=== PATIENT | female | born 1935 | race Caucasian/White ===

== ENCOUNTER 2017-05-05 17:16 | Emergency (ER) | payer MEDICARE, OTHER ==
[2017-05-05 18:51] LABS: BASOPHILS # (AUTO) 0.1 10^3/uL (0.0-0.1); BASOPHILS % (AUTO) 0.9 %; EOSINOPHILS % (AUTO) 0.4 %; HCT - HEMATOCRIT 41.8 % (37.0-47.0); HGB - HEMOGLOBIN 13.8 g/dL (12.0-16.0); LYMPHOCYTES # (AUTO) 1.2 10^3/uL (1.5-3.5); LYMPHOCYTES % (AUTO) 11.3 %; MEAN CORPUSCULAR HEMOGLOBIN 30.5 pg (27.0-31.0); MEAN CORPUSCULAR VOLUME 92.3 fL (81.0-99.0); MEAN PLATELET VOLUME 8.2 fL (7.9-10.8); MONOCYTES # (AUTO) 1.1 10^3/uL (0.0-1.0); MONOCYTES % (AUTO) 10.3 %; NEUTROPHILS # (AUTO) 8.5 10^3/uL (1.5-6.6); NEUTROPHILS % (AUTO) 77.1 %; RED BLOOD COUNT 4.53 10^6/uL (4.20-5.40); RED CELL DISTRIBUTION WIDTH 13.5 % (12.0-15.0); UNCORRECTED WHITE BLOOD COUNT 10.9 x10^3/uL; WHITE BLOOD COUNT 10.9 x10^3/uL (4.8-10.8)
[2017-05-05 19:04] LABS: ALBUMIN/GLOBULIN RATIO 1.2 (1.0-2.2); BILIRUBIN,TOTAL 0.5 mg/dL (0.2-1.0); CALCIUM 9.6 mg/dL (8.5-10.3); CREATININE 0.7 mg/dL (0.4-1.0); POTASSIUM 4.2 mmol/L (3.5-5.0)
--- NOTE | 2017-05-05 20:26 | XRAY Preliminary Report ---
Exam: XR Chest 2 View PA/LAT IMPRESSION: Large left pleural effusion. [facility] SITE ID: [id number]
--- NOTE | 2017-05-05 20:29 | XRAY Report ---
EXAM: CHEST RADIOGRAPHY EXAM DATE: 05/05/2017 07:36 PM. CLINICAL HISTORY: Cough, dyspnea. COMPARISON: None. TECHNIQUE: 2 views. FINDINGS: Lungs/Pleura: Large left pleural effusion. Mediastinum: The visualized portions appear within normal limits for age. IMPRESSION: Large left pleural effusion. [facility] Referring Provider Line: [phone] SITE ID: [id number]
--- NOTE | 2017-05-05 21:19 | ED Physician Documentation ---
PD HPI URI - Stated complaint Stated Complaint: SOA - Chief complaint Chief Complaint: Resp - History obtained from History obtained from: Patient - History of Present Illness Timing - onset: How many weeks ago Timing duration: Weeks Timing details: Gradual onset, Still present Associated symptoms: Nasal congestion, Productive cough (clear sputum), Dyspnea. No: Swollen nodes, Hemoptysis, Chest pain, NVD, Bilateral edema Contributing factors: No: Sick contact, Travel, Immunocompromised Worsened by: Activity, Breathing, Position (lying flat) Similar symptoms before: Has not had sx before Recently seen: Clinic (earlier today) Review of Systems Constitutional: reports: Myalgias. denies: Fever, Chills Nose: reports: Congestion Throat: denies: Sore throat Cardiac: denies: Chest pain / pressure, Palpitations, Pedal edema, Calf pain Respiratory: reports: Dyspnea, Cough, Wheezing. denies: Hemoptysis GI: denies: Nausea, Vomiting, Diarrhea, Hematemesis, Bloody / black stool : denies: Dysuria, Frequency Musculoskeletal: denies: Extremity swelling Neurologic: reports: Generalized weakness. 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 denies: CAD PD ED PE NORMAL - Vitals Vital signs reviewed: Yes - General General: Alert and oriented X 3, No acute distress, Well developed/nourished - HEENT HEENT: Moist mucous membranes, Pharynx benign - Neck Neck: Supple, no meningeal sign, No adenopathy, No JVD, No bruit - Cardiac Cardiac: RRR, No murmur - Respiratory Respiratory: No: Clear bilaterally (decreased left base with some fine crackles noted. Some scattered wheezes perihilar. ) - Abdomen Abdomen: Soft, Non tender - Female Female : Deferred - Rectal Rectal: Deferred - Back Back: No CVA TTP - Derm Derm: Normal color, Warm and dry, No rash - Extremities Extremities: No tenderness to palpate, Normal ROM s pain, No edema, No calf tenderness / cord - Neuro Neuro: Alert and oriented X 3, No motor deficit, Normal speech - Psych Psych: Normal mood, Normal affect Results - Vitals Vitals: Vital Signs - 24 hr 05/05/17 05/05/17 05/06/17 17:39 21:45 00:19 Temperature 36.5 C 36.3 C L Heart Rate 98 95 103 H Respiratory 20 18 18 Rate Blood Pressure 190/91 H 157/94 H O2 Saturation 96 97 Oxygen O2 Source Room air - Labs Labs: Laboratory Tests 05/05/17 05/05/17 18:45 18:45 WBC 10.9 H RBC 4.53 Hgb 13.8 Hct 41.8 MCV 92.3 MCH 30.5 MCHC 33.0 RDW 13.5 Plt Count 267 MPV 8.2 Neut # 8.5 H Lymph # 1.2 L [place] # 1.1 H Eos # 0.0 Baso # 0.1 Absolute Nucleated RBC 0.00 Nucleated RBCs 0.0 Sodium 141 Potassium 4.2 Chloride 101 Carbon Dioxide 29 Anion Gap 11.0 BUN 15 Creatinine 0.7 Estimated GFR (MDRD) 81 L Glucose 113 H Calcium 9.6 Total Bilirubin 0.5 AST 19 ALT 19 Alkaline Phosphatase 53 Total Protein 8.0 Albumin 4.3 Globulin 3.7 Albumin/Globulin Ratio 1.2 Lipase 32 PD MEDICAL DECISION MAKING - ED course Complexity details: considered differential (large left pleural effusion withour prior CXR available, so unknown chronicity, but symptoms have been the past 2-3 weeks. Sats are good here and no masses on CT. I think an imaging guided procedure would be appropriate and does not seem emergent. Would treat as potentially infectious pneumonic, but she does not seem sick enough to think the effusion is empyema. ), d/w patient Departure - Departure Disposition: 01 Home, Self Care Clinical Impression: Pleural effusion, Cough Dyspnea Qualifiers: Dyspnea type: shortness of breath Qualified Code(s): R06.02 - Shortness of breath Condition: Stable Record reviewed to determine appropriate education?: Yes Instructions: ED Dyspnea Shortness of Breath, ED Effusion Pleural Follow-Up: KIMANI ESPITIA [Primary Care Provider] - Prescriptions: Dexamethasone [Decadron] 4 mg PO DAILY #5 tablet Cephalexin [Keflex] 500 mg PO TID #21 capsule Comments: Regular medications. Start the medications are prescribed from the clinic today. Also add cephalexin antibiotic for potential infection and dexamethasone steroid for inflammation. Use the albuterol inhaler 2 puffs 4 times a day. Contact your primary care tomorrow to see if they want to set up an outpatient thoracentesis. They may want to see how much improvement there is with medication. Return if worsening trouble breathing. Discharge Date/Time: 05/06/17 00:25
[2017-05-05] MEDS ORDERED: ALBUTEROL NEB 2.5 MG/3 ML INH STA (21:40)
[2017-05-05] MEDS ORDERED: ALBUTEROL NEB 2.5 MG/3 ML INH ONE (21:52)
[2017-05-05] MEDS ORDERED: IOPAMIDOL-300 100 ML VIAL IVP ONE (22:23)
--- NOTE | 2017-05-05 23:00 | CT Preliminary Report ---
Exam: CT Chest W/ IMPRESSION: 1. Large left pleural effusion with extensive lower lobe atelectasis and volume loss, and with streak y upper lobe atelectasis and mild pleural thickening. 2. Calcified gallstone noted. [facility] SITE ID: [id number]
--- NOTE | 2017-05-05 23:02 | CT Report ---
EXAM: CT CHEST EXAM DATE: 05/05/2017 10:27 PM. CLINICAL HISTORY: Left pleural effusion. Cough. COMPARISONS: None. TECHNIQUE: Routine helical CT imaging was performed through the chest. IV contrast: 80 cc of Isovue-3 00. Reconstructions: Coronal and sagittal. In accordance with CT protocol optimization, one or more of the following dose reduction techniques w ere utilized for this exam: automated exposure control, adjustment of mA and/or KV based on patient s ize, or use of iterative reconstructive technique. FINDINGS: Lungs/Pleura: Clear right lung. Large left pleural effusion with considerable lower lobe atelectasis and volume loss and streaky upper lobe atelectasis with mild pleural thickening. Mediastinum: Aortic, coronary artery, and cardiac valve calcification noted. No adenopathy or masses. The heart and great vessels are normal. Bones: Benign bone hemangioma, T6 and T10. Visualized Abdomen: 3 mm gallstone noted. Other: None. IMPRESSION: 1. Large left pleural effusion with extensive lower lobe atelectasis and volume loss, and with streak y upper lobe atelectasis and mild pleural thickening. 2. Calcified gallstone noted. [facility] Referring Provider Line: [phone] SITE ID: [id number]
[2017-05-05] MEDS ORDERED: CEPHALEXIN 250 MG CAPSULE PO STA (23:58)
[2017-05-05] MEDS ORDERED: DEXAMETHASONE 10 MG/ML VIAL PO STA (23:58)
[2017-05-06] MEDS ORDERED: DEXAMETHASONE 10 MG/ML VIAL ONE (00:09)
[2017-05-06] MEDS ORDERED: CEPHALEXIN 250 MG CAPSULE PO ONE (00:09)
[2017-05-06 00:20] VITALS: BP 157/94
== END 2017-05-06 00:25 | disposition home or self-care (01) ==
LOC: ED 17:16
DX: J90 Pleural effusion, not elsewhere classified (principal); R05 Cough; R06.02 Shortness of breath; I10 Essential (primary) hypertension
CPT/HCPCS: 36415; 71020; 71260; 80053; 83690; 85025; 94640; 99283; A9270; J7613; Q9967

== ENCOUNTER 2017-09-26 10:46 | Emergency (ER) | payer MEDICARE, OTHER ==
[2017-09-26 11:45] LABS: BASOPHILS % (AUTO) 0.2 %; EOSINOPHILS % (AUTO) 0.1 %; HGB - HEMOGLOBIN 11.3 g/dL (12.0-16.0); LYMPHOCYTES # (AUTO) 0.6 10^3/uL (1.5-3.5); LYMPHOCYTES % (AUTO) 4.8 %; MEAN CORPUSCULAR HEMOGLOBIN 28.2 pg (27.0-31.0); MEAN CORPUSCULAR HGB CONC 32.7 g/dL (32.0-36.0); MEAN CORPUSCULAR VOLUME 86.3 fL (81.0-99.0); MEAN PLATELET VOLUME 7.3 fL (7.9-10.8); MONOCYTES # (AUTO) 1.3 10^3/uL (0.0-1.0); MONOCYTES % (AUTO) 9.5 %; NEUTROPHILS # (AUTO) 11.3 10^3/uL (1.5-6.6); NEUTROPHILS % (AUTO) 85.4 %; PLT - PLATELET COUNT 479 10^3/uL (130-450); RED BLOOD COUNT 4.01 10^6/uL (4.20-5.40); WHITE BLOOD COUNT 13.3 x10^3/uL (4.8-10.8)
--- NOTE | 2017-09-26 11:46 | ED Physician Documentation ---
PD HPI DYSPNEA - Stated complaint Stated Complaint: SOA - Chief complaint Chief Complaint: Resp - History obtained from History obtained from: Patient - History of Present Illness Timing - onset: How many weeks ago (4-5 weeks of dyspnea with Effusion found on the left. She had a CT scan which did not show any obvious tumors. She had had a chest cold prior to that. She had a thoracentesis obtained 300 mL and sent for studies. She had a follow-up with pulmonary in [place] after seeing her primary care. They found some recurrent effusion there and set up a your centesis in [place] done by interventional radiology and they obtained 1600 mL. This was 9 days ago. She has had progressive dyspnea again since that time and feeling more short of breath the last 2-3 days in particular. She denies any fevers. She has a little bit of a cough. She denies any wheezing. She has not had any vomiting or diarrhea. She has noticed a little pedal edema in the last day or 2 that is new for her.) Timing - onset during: Light activity Timing - duration: Days, Weeks Timing - details: Gradual onset, Still present Inciting event(s): URI. No: Out of meds Improved by: Rest, Sitting up Worsened by: Exertion, Laying flat Associated symptoms: Cough, Bilateral edema (mild for 2-3 days). No: Fever, Hemoptysis, Wheezing, Chest pain / discomfort, Palpitations, Diaphoresis Similar symptoms before: Diagnosis (left pleural effusion, with thoracentesis twice.) Recently seen: Clinic, Emergency Dept, Other (See above description) Review of Systems Constitutional: denies: Fever, Chills, Myalgias Nose: denies: Rhinorrhea / runny nose, Congestion Throat: denies: Sore throat Cardiac: denies: Chest pain / pressure, Palpitations Respiratory: reports: Dyspnea, Cough. denies: Wheezing GI: denies: Abdominal Pain, Nausea, Vomiting, Diarrhea, Bloody / black stool : denies: Dysuria, Frequency Musculoskeletal: denies: Neck pain, Back pain Neurologic: reports: Generalized weakness. 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: Hysterectomy - Present Medications Home Medications: Ambulatory Orders Medication Instructions Recorded Confirmed Cephalexin [Keflex] 500 mg PO TID #21 capsule 05/06/17 Dexamethasone [Decadron] 4 mg PO DAILY #5 tablet 05/06/17 Dexamethasone [Decadron] 4 mg PO DAILY #5 tablet 09/26/17 Levalbuterol Tartrate [Xopenex Hfa] 2 puffs IH QID #1 hfa.aer.ad 09/26/17 - Allergies Allergies/Adverse Reactions: Allergies Allergy/AdvReac Type Severity Reaction Status Date / Time No Known Drug Allergies Allergy Verified 05/05/17 17:46 - Social History Does the pt smoke?: No Smoking Status: Never smoker Does the pt drink ETOH?: No Does the pt have substance abuse?: No - Immunizations Immunizations are current?: Yes - POLST Patient has POLST: No PD ED PE NORMAL - Vitals Vital signs reviewed: Yes - General General: Alert and oriented X 3, No acute distress, Well developed/nourished - HEENT HEENT: Moist mucous membranes, Pharynx benign - Neck Neck: Supple, no meningeal sign, No adenopathy, No JVD, No bruit - Cardiac Cardiac: RRR, No murmur - Respiratory Respiratory: No: Clear bilaterally (right is clear, left with very diminished lung sounds 2/[address] up and dullness to percussion. ) - Abdomen Abdomen: Soft, Non tender - Back Back: No CVA TTP - Derm Derm: Normal color, Warm and dry - Extremities Extremities: No deformity, No tenderness to palpate, Normal ROM s pain, No calf tenderness / cord, Other (1+ edema and ankles and lower legs. No redness. ) - Neuro Neuro: Alert and oriented X 3, No motor deficit - Psych Psych: Normal mood, Normal affect Results - Vitals Vitals: Vital Signs - 24 hr 09/26/17 09/26/17 09/26/17 10:48 10:53 12:52 Temperature 36.2 C L Heart Rate 113 H 115 H Respiratory 22 28 H Rate Blood Pressure 131/105 H 144/87 H O2 Saturation 93 90 L 09/26/17 16:53 Temperature Heart Rate 88 Respiratory 16 Rate Blood Pressure O2 Saturation Oxygen O2 Source Room air - Labs Labs: Microbiology 09/26/17 16:10 Body Fluid Culture - Preliminary Other - Pleura, L Lung Laboratory Tests 09/26/17 09/26/17 09/26/17 11:35 11:35 11:35 WBC 13.3 H RBC 4.01 L Hgb 11.3 L Hct 34.6 L MCV 86.3 MCH 28.2 MCHC 32.7 RDW 14.0 Plt Count 479 H MPV 7.3 L Neut # 11.3 H Lymph # 0.6 L [place] # 1.3 H Eos # 0.0 Baso # 0.0 Absolute Nucleated RBC 0.00 Nucleated RBC % 0.0 Sodium 135 Potassium 4.4 Chloride 94 L Carbon Dioxide 27 Anion Gap 14.0 H BUN 20 Creatinine 0.7 Estimated GFR (MDRD) 81 L Glucose 179 H Calcium 9.0 Total Bilirubin 0.6 AST 41 ALT 54 Alkaline Phosphatase 160 H Lactate Dehydrogenase Troponin I < 0.04 B-Natriuretic Peptide Total Protein 8.4 H Albumin 2.6 L Globulin 5.8 H Albumin/Globulin Ratio 0.4 L Lipase 17 L Fluid Source Fluid Color Fluid Clarity Fluid WBC Fluid RBC Fluid Neutrophils % Fluid Lymphocytes % Fluid Monocytes % Fluid Macrophages % 09/26/17 09/26/17 09/26/17 11:35 11:42 16:40 WBC RBC Hgb Hct MCV MCH MCHC RDW Plt Count MPV Neut # Lymph # [place] # Eos # Baso # Absolute Nucleated RBC Nucleated RBC % Sodium Potassium Chloride Carbon Dioxide Anion Gap BUN Creatinine Estimated GFR (MDRD) Glucose Calcium Total Bilirubin AST ALT Alkaline Phosphatase Lactate Dehydrogenase 153 Troponin I B-Natriuretic Peptide 94 Total Protein Albumin Globulin Albumin/Globulin Ratio Lipase Fluid Source PLEURAL Fluid Color RED Fluid Clarity CLOUDY Fluid WBC 2384 Fluid RBC 47250 Fluid Neutrophils % 2 Fluid Lymphocytes % 93 Fluid Monocytes % 4 Fluid Macrophages % 1 - Rads (name of study) chest xray Radiology: Prelim report reviewed, EMP read contemporaneously (large recurrent left effusion. No midline shift. ) post procedure Radiology: Prelim report reviewed (no PTX, lessened effusion. ) Procedures - Thoracentesis Preparation: Consent obtained (verbal, and she has had procedure twice before), Sterile prep and drape, Sitting, Local - lidocaine Technique: Catheter over needle, Intercostal space - enter (9), Lateral, Left, Ultrasound used Fluid: Clear, Bloody, Sent for cell count, Sent for gram stain, Sent for culture , Sent for pH, Sent fluid:serum LDH, Sent fluid:serum protein, Sent for cytology , Other (1750 ml obtained) Aftercare: CXR obtained, No pneumo, No complications, Patient tolerated well, Dressing applied, Other (she is feeling much improved breathing) PD MEDICAL DECISION MAKING - ED course Complexity details: reviewed results, considered differential, d/w patient, d/w credit consultant (Pulmonary publications inspector in [place]. He said she has a clinic appointment tomorrow but that would be a brief time slot and they would not be able to set up a thoracentesis for her for a few days. He therefore suggested doing a thoracentesis here in a more timely fashion given her symptoms and now some pedal edema. She did not seem to be in heart failure per se with the right side looking clear and a BNP is normal. Likely is just some pressure on the heart because of the fluid. The patient was agreeable and consented verbally to the thoracentesis here and this was done without complication. She was breathing much improved. She was given a diuretic dose as well with a lot of diuresing. She states she is feeling much better. The pleural fluid was sent at the direction of the charge out clerk for repeat studies including protein and LDH, cell count culture, glucose,, cytology, PH. Were unable to send it for triglycerides as I cannot order that. Total volume extracted was 1750 mils and it was slightly plain punch colored red but clear.) Departure - Departure Disposition: 01 Home, Self Care Clinical Impression: Pleural effusion, S/P thoracentesis Dyspnea Qualifiers: Dyspnea type: dyspnea on exertion Qualified Code(s): R06.09 - Other forms of dyspnea Condition: Stable Record reviewed to determine appropriate education?: Yes Instructions: ED Effusion Pleural Follow-Up: NOLVIA DAVIS [Primary Care Provider] - Prescriptions: Dexamethasone [Decadron] 4 mg PO DAILY #5 tablet Levalbuterol Tartrate [Xopenex Hfa] 2 puffs IH QID #1 hfa.aer.ad Comments: Follow-up with pulmonary tomorrow in [place] as planned. Have them look up the test results of the pleural fluid. Most of them are not back at this time. They should be resulted by tomorrow except for the cultures. Discussed with them use of some mild diuretics. With the continued weeping and accumulation of fluid there, without an obvious source, sometimes they will need to do some procedures that will decrease the fluid. This would be discussed with the hospitality specialist. Use the Xopenex inhaler 2 puffs 4 times a day for the next week or so to help improve expansion. Do the incentive spirometer 4 times a day at least to help improve expansion of the lung that has been collapsed because of the fluid. You might develop a little bit of cough and sputum production and sometimes a low-grade fever overnight as part of an inflammatory response with that. Recheck if worsening trouble breathing hemoptysis ( coughing blood), lightheadedness or high fever. Discharge Date/Time: 09/26/17 18:07
[2017-09-26 11:59] LABS: ALBUMIN 2.6 g/dL (3.2-5.5); ALBUMIN/GLOBULIN RATIO 0.4 (1.0-2.2); BILIRUBIN,TOTAL 0.6 mg/dL (0.2-1.0); CREATININE 0.7 mg/dL (0.4-1.0); TOTAL PROTEIN 8.4 g/dL (6.7-8.2)
--- NOTE | 2017-09-26 12:25 | XRAY Report ---
EXAM: CHEST RADIOGRAPHY EXAM DATE: 09/26/2017 11:58 AM. CLINICAL HISTORY: Soa. COMPARISON: Chest radiograph dated 05/05/2017. TECHNIQUE: 2 views. FINDINGS: Lungs/Pleura: Large left-sided pleural effusion with near complete white out of the left hemithorax w ith only minimal residual aeration in the left apex. Right lung remains well aerated and clear. Mediastinum: Heart and mediastinal contours are unremarkable. Other: None. IMPRESSION: 1. Enlarging large left-sided pleural effusion with near complete white out of the left hemithorax. 2. The right lung remains well aerated and clear. [facility] Referring Provider Line: [phone] SITE ID: [id number]
--- NOTE | 2017-09-26 12:25 | XRAY Preliminary Report ---
Exam: XR CHEST 2 VIEW X-RAY IMPRESSION: 1. Enlarging large left-sided pleural effusion with near complete white out of the left hemithorax. 2. The right lung remains well aerated and clear. [facility] SITE ID: [id number]
[2017-09-26] MEDS ORDERED: FUROSEMIDE 40 MG/4 ML VIAL IVP STA (12:26)
[2017-09-26] MEDS ORDERED: DEXAMETHASONE 10 MG/ML VIAL IVP STA (12:26)
[2017-09-26 12:52] VITALS: BP 144/87
[2017-09-26] MEDS ORDERED: LEVALBUTEROL 1.25 MG/3 ML NEB INH STA (16:19)
[2017-09-26 16:53] LABS: CC,BF RBC 24965 /mm^3
[2017-09-26 17:11] LABS: BF COLOR RED; BF SOURCE PLEURAL; LYMPHOCYTES %,BODY FLUID 93; MACROPHAGES %,BODY FLUID 1 %; MONOCYTES %,BODY FLUID 4 %
--- NOTE | 2017-09-26 17:56 | XRAY Report ---
EXAM: CHEST RADIOGRAPHY EXAM DATE: 09/26/2017 05:05 PM. CLINICAL HISTORY: Left sided chest pain COMPARISON: 09/26/17 11:45 AM. TECHNIQUE: 2 views. FINDINGS: Lungs/Pleura: A large left pleural effusion has decreased compared to the prior examination. There is volume loss in the left lung. No pneumothorax. Mediastinum: The heart size cannot be evaluated. Arterial calcifications indicate atherosclerosis. Other: None. IMPRESSION: Decreased size of large left pleural effusion. [facility] Referring Provider Line: [phone] SITE ID: [id number]
== END 2017-09-26 18:07 | disposition home or self-care (01) ==
LOC: ED 10:46
DX: J90 Pleural effusion, not elsewhere classified (principal); R06.09 Other forms of dyspnea; I10 Essential (primary) hypertension
CPT/HCPCS: 32554; 36415; 71046; 80053; 81599; 83615; 83690; 83880; 84484; 85025; 87070; 87205; 89051; 93005; 94640; 96374; 96375; 99283; 99284; J7614; 82945; 84157

== ENCOUNTER 2017-10-06 10:33 | Outpatient (CLI) | payer MEDICARE, OTHER | END 2017-10-06 10:34 | disposition critical access hospital (66) | LOC: EMS 10:33 | PROVIDERS: ATTEND Surgery | DX: R07.9 Chest pain, unspecified (principal); R06.02 Shortness of breath | CPT/HCPCS: A0425; A0429 ==

== ENCOUNTER 2017-10-06 10:48 | Emergency (ER) | payer MEDICARE, OTHER ==
--- NOTE | 2017-10-06 11:30 | ED Physician Documentation ---
History of Present Illness - Stated complaint Stated Complaint: CP - Chief complaint Chief Complaint: Cardiac - Additonal information Additional information: hx from pt 81 female recurrent L pleural effusions to ER today BIBA for chest pain sates she had approx 15 min of chest pain at about 930 or 10 this mrbulmaro is also SOA but that was present befor the CP today no fever cough has ag LE edema but that is not new and is better after recently starting lasix PMD is [facility]REG[facility] pulm is at [facility] Review of Systems Constitutional: denies: Fever, Chills Cardiac: reports: Chest pain / pressure Respiratory: reports: Dyspnea. 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 - Present Medications Home Medications: Ambulatory Orders Medication Instructions Recorded Confirmed Atenolol 25 mg PO 10/06/17 Blood Pressure Med 10/06/17 Furosemide [Lasix] 20 mg PO ONCE 10/06/17 10/06/17 - Allergies Allergies/Adverse Reactions: Allergies Allergy/AdvReac Type Severity Reaction Status Date / Time No Known Drug Allergies Allergy Verified 10/06/17 10:54 - Social History Does the pt smoke?: No Smoking Status: Never smoker Does the pt drink ETOH?: No Does the pt have substance abuse?: No - Immunizations Immunizations are current?: Yes - POLST Patient has POLST: No PD ED PE NORMAL - Vitals Vital signs reviewed: Yes - General General: Alert and oriented X 3 - HEENT HEENT: PERRL - Neck Neck: Supple, no meningeal sign - Cardiac Cardiac: RRR - Respiratory Respiratory: Other (dec BS on L) - Abdomen Abdomen: Soft, Non tender - Derm Derm: Normal color - Extremities Extremities: Other (ag edema no TTP improved per pt) - Neuro Neuro: Alert and oriented X 3 Results - Vitals Vitals: Vital Signs - 24 hr 10/06/17 10/06/17 10/06/17 10:51 10:56 13:28 Temperature 36.2 C L Heart Rate 97 90 Respiratory 20 16 Rate Blood Pressure 115/84 H 114/64 O2 Saturation 86 L 97 97 10/06/17 10/06/17 15:30 15:49 Temperature Heart Rate 96 111 H Respiratory 20 18 Rate Blood Pressure 112/60 O2 Saturation 96 Oxygen O2 Source Room air - EKG (time done) 1053 Rate: Rate (enter#) (93) Rhythm: NSR Intervals: Normal ID. No: Prolonged QT Ischemia: Non specific changes (flattened T waves inf and lat) Compare to prior EKG: Unchanged from prior EKG - Labs Labs: Laboratory Tests 10/06/17 10/06/17 10/06/17 10:56 11:30 11:30 WBC 14.7 H RBC 4.01 L Hgb 11.0 L Hct 33.8 L MCV 84.4 MCH 27.4 MCHC 32.5 RDW 14.8 Plt Count 398 MPV 7.6 L Neut # 11.7 H Lymph # 1.0 L [place] # 1.9 H Eos # 0.0 Baso # 0.0 Absolute Nucleated RBC 0.00 Nucleated RBC % 0.0 Manual Slide Review Indicated RBC Morph Micro Appear 1+ ANISOCYTOSIS Sodium 133 L Potassium 4.2 Chloride 94 L Carbon Dioxide 27 Anion Gap 12.0 BUN 23 H Creatinine 0.7 Estimated GFR (MDRD) 81 L Glucose 111 H Calcium 8.9 Troponin I < 0.04 B-Natriuretic Peptide 10/06/17 10/06/17 11:30 13:41 WBC RBC Hgb Hct MCV MCH MCHC RDW Plt Count MPV Neut # Lymph # [place] # Eos # Baso # Absolute Nucleated RBC Nucleated RBC % Manual Slide Review RBC Morph Micro Appear Sodium Potassium Chloride Carbon Dioxide Anion Gap BUN Creatinine Estimated GFR (MDRD) Glucose Calcium Troponin I < 0.04 B-Natriuretic Peptide 112 H - Rads (name of study) CXR Radiology: See rad report (large pleural effusion) CT chest with IV con Radiology: See rad report (still mod effusion, marked chanhed in character of fluid suggests infection or malignancy, atelectasis, no pneumo, no pna, increasing adenopathy) PD MEDICAL DECISION MAKING - ED course ED course: EKG unchanged from prior and trop X 2 neg - doubt ACS and after only 10-15 min of pain do not think admit for further cardiac work up will be fruitful she does have a big recurrent pleural effusion radiology Dr Mercedes very kindly helped and did thoracentesis and removed 1800 cc fluid s complication I spoke with pts pulm group and ordered the tests they requested (cytology, LDH pH) and got the post tap CT they requested which suggests either malignancy or infection - no PE seen on contrast CT - added on gram stain (WBC no organisms) and culture to fluid but pt is afebrile so doubt infected she is feeling better will dc and she has MD fup at [facility] Wednesday and so can get cytology and culture results at that time Departure - Departure Disposition: 01 Home, Self Care Clinical Impression: Pleural effusion Condition: Good Instructions: ED Effusion Pleural Follow-Up: [facility] [Provider Group] Comments: The heart tests were fine and it does not seem the pain was due to a heart attack The CT does not show a pneumonia, or collapsed lung or aneurysm or blood clot. But the radiologist who read the CT scan did note the the fluid accumulating in your lung looks different than it did last fall and thus raises the concern that the fluid is either infected or cancerous So the fluid has been sent to test for both infection and cancer - those results won't be back today - you need to see your PMD at [facility] Wednesday as planned to get those results Of course return to the ER sooner if worse
--- NOTE | 2017-10-06 11:35 | XRAY Report ---
EXAM: CHEST RADIOGRAPHY EXAM DATE: 10/06/2017 11:16 AM. CLINICAL HISTORY: Cp soa. COMPARISON: Two-view chest 09/26/2017. TECHNIQUE: 2 views. FINDINGS: Large left pleural effusion is increased. Underlying process is not excluded. The right lung appears clear. No pneumothorax. The mediastinal silhouette is poorly evaluated due to the adjacent opacity. IMPRESSION: Interval increase in left pleural effusion. Underlying process is not excluded. [facility] Referring Provider Line: [phone] SITE ID: [id number]
[2017-10-06 11:40] LABS: BASOPHILS % (AUTO) 0.3 %; EOSINOPHILS % (AUTO) 0.1 %; MEAN CORPUSCULAR HEMOGLOBIN 27.4 pg (27.0-31.0); MEAN CORPUSCULAR HGB CONC 32.5 g/dL (32.0-36.0); MEAN CORPUSCULAR VOLUME 84.4 fL (81.0-99.0); MEAN PLATELET VOLUME 7.6 fL (7.9-10.8); MONOCYTES # (AUTO) 1.9 10^3/uL (0.0-1.0); MONOCYTES % (AUTO) 12.8 %; NEUTROPHILS # (AUTO) 11.7 10^3/uL (1.5-6.6); NEUTROPHILS % (AUTO) 79.8 %; PLT - PLATELET COUNT 398 10^3/uL (130-450); RED BLOOD COUNT 4.01 10^6/uL (4.20-5.40); RED CELL DISTRIBUTION WIDTH 14.8 % (12.0-15.0); WHITE BLOOD COUNT 14.7 x10^3/uL (4.8-10.8)
[2017-10-06 11:54] LABS: RBC MORPHOLOGY (MULTIPLE) 1+ ANISOCYTOSIS (NORMAL)
[2017-10-06 13:09] LABS: CALCIUM 8.9 mg/dL (8.5-10.3); CREATININE 0.7 mg/dL (0.4-1.0)
--- NOTE | 2017-10-06 14:10 | Ultrasound Report ---
ULTRASOUND-GUIDED THORACENTESIS: 10/06/2017 CLINICAL INDICATION: Recurrent left effusion. PROCEDURE: Following obtaining informed consent, a suitable site in the patient's left posterior thorax was selected with ultrasound. The skin was prepped and draped in the usual sterile fashion. The skin and soft tissues were anesthetized with lidocaine. A Fibg-Z-Ydozaebs catheter was inserted into the left pleural space, and approximately 1800 mL of fluid was removed without difficulty. The patient tolerated the procedure well. No immediate complications. Fluid was submitted to pathology as requested by the emergency department physician. IMPRESSION: SUCCESSFUL ULTRASOUND-GUIDED LEFT THORACENTESIS, YIELDING APPROXIMATELY 1800 ML OF FLUID. TD: 10/06/2017 14:09
[2017-10-06] MEDS ORDERED: BUFFERED LIDOCAINE 10 ML SYRINGE SUBQ STA (14:39)
[2017-10-06] MEDS ORDERED: IOPAMIDOL-300 100 ML VIAL ONE (15:07)
--- NOTE | 2017-10-06 15:08 | CT Preliminary Report ---
Exam: CT CHEST W/ IMPRESSION: 1. Moderate amount left pleural effusion despite recent thoracentesis. 2. Marked change in the character of the left pleural effusion, now worrisome for either infection or malignancy. 3. Improved aeration left lung. 4. Cholelithiasis. 5. Increasing shotty mediastinal and left hilar adenopathy. [facility] SITE ID: [id number]
--- NOTE | 2017-10-06 15:15 | CT Report ---
EXAM: CT CHEST EXAM DATE: 10/06/2017 02:17 PM. CLINICAL HISTORY: Chronic recurrent left pleural effusion. 1800 cc fluid removed earlier today. COMPARISONS: 05/05/2017. TECHNIQUE: Routine helical CT imaging was performed through the chest. IV contrast: 80 mL Isovue 300. Reconstructions: Coronal and sagittal. In accordance with CT protocol optimization, one or more of the following dose reduction techniques w ere utilized for this exam: automated exposure control, adjustment of mA and/or KV based on patient s ize, or use of iterative reconstructive technique. FINDINGS: Lungs/Pleura: Right lung is normal. Dramatic interval change in the characteristics of the residual moderately large left pleural effusio n. Whereas previously, it appeared to be simple, currently, there is up to 2 cm irregular-enhancing r ims. Internal density is slightly greater than water. Irregular pleural margins. Improved aeration in the left lung, although with moderate ground-glass opacities in the basal segments of left lower lob e, and a moderate amount of atelectasis involving the inferior segment of the lingula. No air in the left pleural space. No endobronchial lesion. Mediastinum: Increasing shotty mediastinal and periaortic adenopathy, maximum transverse diameter of 8 mm. Increasing shotty left hilar adenopathy. Normal caliber heart without significant pericardial f luid. Normal caliber thoracic aorta without dissection. Bones: Unremarkable. Visualized Abdomen: 3 mm calcified gallstone. Other: None. IMPRESSION: 1. Moderate amount of left pleural effusion despite recent thoracentesis. 2. Marked change in the character of the left pleural effusion, now worrisome for either infection or malignancy. 3. Improved aeration in the left lung. 4. Cholelithiasis. 5. Increasing shotty mediastinal and left hilar adenopathy. [facility] Referring Provider Line: [phone] SITE ID: [id number]
[2017-10-06] MEDS ORDERED: ALBUTEROL NEB 2.5 MG/3 ML INH STA (15:21)
[2017-10-06 15:49] VITALS: BP 112/60
[2017-10-06] MEDS ORDERED: IOPAMIDOL-300 100 ML VIAL IVP ONE (16:47)
== END 2017-10-06 16:30 | disposition home or self-care (01) ==
LOC: EDUNIT# → ED 10:48
DX: J90 Pleural effusion, not elsewhere classified (principal); I10 Essential (primary) hypertension
CPT/HCPCS: 32555; 36415; 71046; 71260; 80048; 81599; 83880; 84484; 85025; 87070; 87205; 88108; 88184; 88185; 88305; 88341; 88342; 88344; 93005; 94640; 99284; Q9967

== ENCOUNTER 2017-10-09 14:28 | Emergency (ER) | payer MEDICARE, OTHER ==
--- NOTE | 2017-10-09 14:57 | ED Physician Documentation ---
PD HPI DYSPNEA - Stated complaint Stated Complaint: DIFF BREATHING - Chief complaint Chief Complaint: Resp - History obtained from History obtained from: Patient, Family - History of Present Illness Timing - onset: Other (Since the fall and even more so in the last month or so she has been having dyspnea which is due to a recurrent pleural effusion. She has been seen here and had a thoracentesis done a couple of times. The last CT was concerning for malignancy or infection, however cytology was negative. Results of the pleural fluid showed a negative culture, white blood cell count was 2384, mostly Lymphocytes. Otherwise results were notable for a LD greater than 1300, relatively normal pH of 7.2, glucose was only 10, and protein was at 5.2 suggestive of exudate. She went to her physician's today who referred her here, I guess because they could not get the results but also she was having increasing dyspnea and lack of breath sounds on the left suggesting may be the need for a repeat thoracentesis. She does have shortness of breath but denies any ongoing or recent chest pain. There is no fever or increase in her pedal edema.) Review of Systems Constitutional: reports: Fatigue. 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 - Present Medications Home Medications: Ambulatory Orders Medication Instructions Recorded Confirmed Atenolol 25 mg PO 10/06/17 Blood Pressure Med 10/06/17 Furosemide [Lasix] 20 mg PO ONCE 10/06/17 10/06/17 Levalbuterol HCl [Xopenex] 10/09/17 - Allergies Allergies/Adverse Reactions: Allergies Allergy/AdvReac Type Severity Reaction Status Date / Time No Known Drug Allergies Allergy Verified 10/09/17 14:39 - Social History Does the pt smoke?: No Smoking Status: Never smoker Does the pt drink ETOH?: No Does the pt have substance abuse?: No - Immunizations Immunizations are current?: Yes - POLST Patient has POLST: No PD ED PE NORMAL - Vitals Vital signs reviewed: Yes - General General: Alert and oriented X 3, No acute distress - HEENT HEENT: PERRL, EOMI - Neck Neck: Supple, no meningeal sign, No bony TTP - Cardiac Cardiac: RRR, No murmur - Respiratory Respiratory: Other (No breath sounds on the left, slightly labored) - Abdomen Abdomen: Non tender - Extremities Extremities: Other (Mild pitting pedal edema, no tenderness) - Neuro Neuro: Alert and oriented X 3, Normal speech Results - Vitals Vitals: Vital Signs - 24 hr 10/09/17 10/09/17 10/09/17 14:31 15:30 17:23 Temperature 37.1 C 37.8 C H Heart Rate 123 H 125 H 113 H Respiratory 24 30 H 31 H Rate Blood Pressure 102/44 L 102/74 121/68 O2 Saturation 91 L 95 92 10/09/17 18:44 Temperature 37.7 C H Heart Rate 107 H Respiratory 33 H Rate Blood Pressure 115/71 O2 Saturation 98 Oxygen O2 Source Non-rebreather mask - EKG (time done) 1435 Rate: Rate (enter#) (121) Rhythm: Sinus tachycardia [place]: Normal Intervals: Normal NV Ischemia: Non specific changes (There is some flattening of the T waves especially anterior and lateral, this is a little worse in 1 and L than the last EKG dated 10/06 of this year.) - Labs Labs: Laboratory Tests 10/09/17 10/09/17 10/09/17 15:00 15:00 15:00 WBC 14.2 H RBC 3.97 L Hgb 10.6 L Hct 33.2 L MCV 83.6 MCH 26.6 L MCHC 31.8 L RDW 14.5 Plt Count 444 MPV 7.4 L Neut # 11.7 H Lymph # 1.0 L Rankin # 1.4 H Eos # 0.0 Baso # 0.1 Absolute Nucleated RBC 0.01 Nucleated RBC % 0.0 PT 16.3 H INR 1.5 H Sodium 132 L Potassium 4.4 Chloride 91 L Carbon Dioxide 27 Anion Gap 14.0 H BUN 20 Creatinine 0.9 Estimated GFR (MDRD) 60 L Glucose 144 H Calcium 9.0 Total Bilirubin 0.8 AST 46 H ALT 45 Alkaline Phosphatase 156 H Troponin I Total Protein 7.2 Albumin 2.2 L Globulin 5.0 H Albumin/Globulin Ratio 0.4 L Lipase 15 L 10/09/17 15:00 WBC RBC Hgb Hct MCV MCH MCHC RDW Plt Count MPV Neut # Lymph # Rankin # Eos # Baso # Absolute Nucleated RBC Nucleated RBC % PT INR Sodium Potassium Chloride Carbon Dioxide Anion Gap BUN Creatinine Estimated GFR (MDRD) Glucose Calcium Total Bilirubin AST ALT Alkaline Phosphatase Troponin I < 0.04 Total Protein Albumin Globulin Albumin/Globulin Ratio Lipase - Rads (name of study) 2v chest Radiology: EMP read contemporaneously (Lg L pleural effusion) 1v chest post thoracentesis Radiology: EMP read contemporaneously (Improved appearance of the pleural effusion with lobular left pleural thickening but now a new iatrogenic pneumothorax.) Procedures - Thoracentesis Preparation: Consent obtained (written), Sterile prep and drape, Sitting, Local - lidocaine Technique: Catheter over needle, Left Fluid: Bloody Aftercare: CXR obtained, Patient tolerated well (A lot of coughing and had to stop after about 1400ml) PD MEDICAL DECISION MAKING - ED course ED course: 81-year-old woman with a rapidly recurrent pleural effusion of not completely clear etiology at this point. It is exudative but without other evidence of infection, and previous cytology on the pleural fluid was negative. At her request because of dyspnea a repeat thoracentesis was done which she actually did not tolerate very well, she was coughing a lot and moving a lot during the procedure and thus it was aborted early and postprocedural x-ray does show an iatrogenic pneumothorax which was discussed with the patient. Regardless she actually felt much better after the procedure. 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 After some delay spoke with Dr. Werner at [facility] who did recommend transfer to the hospitalist service, they were paged for transfer at 1810. Dr. Werner did want us to repeat cytology, LDH, glucose, protein, cell count etc. on the pleural fluid which was ordered. Accepted by Noe Salvador at [facility], hospitalist at 1825, monica completed. Departure - Departure Disposition: 02 Transfer Acute Care Hosp Clinical Impression: S/P thoracentesis, Pleural effusion Pneumothorax Qualifiers: Pneumothorax type: postprocedural Qualified Code(s): J95.811 - Postprocedural pneumothorax
[2017-10-09 15:11] LABS: BASOPHILS # (AUTO) 0.1 10^3/uL (0.0-0.1); BASOPHILS % (AUTO) 0.4 %; HGB - HEMOGLOBIN 10.6 g/dL (12.0-16.0); LYMPHOCYTES % (AUTO) 7.1 %; MEAN CORPUSCULAR HEMOGLOBIN 26.6 pg (27.0-31.0); MEAN CORPUSCULAR HGB CONC 31.8 g/dL (32.0-36.0); MEAN CORPUSCULAR VOLUME 83.6 fL (81.0-99.0); MEAN PLATELET VOLUME 7.4 fL (7.9-10.8); MONOCYTES # (AUTO) 1.4 10^3/uL (0.0-1.0); MONOCYTES % (AUTO) 10.2 %; NEUTROPHILS # (AUTO) 11.7 10^3/uL (1.5-6.6); NEUTROPHILS % (AUTO) 82.3 %; PLT - PLATELET COUNT 444 10^3/uL (130-450); RED BLOOD COUNT 3.97 10^6/uL (4.20-5.40); RED CELL DISTRIBUTION WIDTH 14.5 % (12.0-15.0); WHITE BLOOD COUNT 14.2 x10^3/uL (4.8-10.8)
[2017-10-09 15:14] LABS: INR 1.5 (0.8-1.2); PT - PROTHROMBIN TIME 16.3 secs (9.9-12.6)
[2017-10-09 15:18] LABS: ALBUMIN 2.2 g/dL (3.2-5.5); ALBUMIN/GLOBULIN RATIO 0.4 (1.0-2.2); BILIRUBIN,TOTAL 0.8 mg/dL (0.2-1.0); CREATININE 0.9 mg/dL (0.4-1.0); TOTAL PROTEIN 7.2 g/dL (6.7-8.2)
--- NOTE | 2017-10-09 15:34 | XRAY Report ---
EXAM: CHEST RADIOGRAPHY EXAM DATE: 10/09/2017 03:10 PM. CLINICAL HISTORY: Pleural effusion. COMPARISON: Chest radiograph and CT from 10/06/2018. TECHNIQUE: 2 views. FINDINGS: Lungs/Pleura: The large left-sided pleural effusion is stable. Better on prior chest CT, there is irr egular thickening of the pleura, as seen in the left upper lung. Visualized portions of the left uppe r lobe and right lung are clear. Mediastinum: Left cardiac border is obscured by the large pleural effusion. Aortic calcification is c onsistent with atherosclerotic disease. Other: None. IMPRESSION: Stable appearance of the large left pleural effusion. Pleural thickening is again seen. [facility] Referring Provider Line: [phone] SITE ID: [id number]
--- NOTE | 2017-10-09 15:34 | XRAY Preliminary Report ---
Exam: XR CHEST 2 VIEW X-RAY IMPRESSION: Stable appearance of the large left pleural effusion. Pleural thickening is again seen. [facility] SITE ID: [id number]
[2017-10-09] MEDS ORDERED: TETANUS/DIPHTHERIA/PERTUSSIS 0.5 ML SYRINGE IM ONE (15:40)
--- NOTE | 2017-10-09 16:04 | XRAY Report ---
EXAM: CHEST RADIOGRAPHY EXAM DATE: 10/09/2017 03:55 PM. CLINICAL HISTORY: Post thoracentesis. COMPARISON: Today at 1453. TECHNIQUE: 1 view upright. FINDINGS: Lungs/Pleura: Moderate basilar pneumothorax on the left post thoracentesis, with removal of a majorit y of the pleural fluid. Lobular pleural thickening in the left chest concerning for pleural masses. C lear right lung with sharp costophrenic angle and no pneumothorax. Mediastinum: Large heart. Other: No bony abnormalities noted. IMPRESSION: 1. Moderate left basilar pneumothorax post thoracentesis. 2. Lobular left pleural thickening concerning for pleural masses. [facility] The above findings were discussed with Dr. Owens by Dr. Peter Gamez at 16:02 hrs on 10/09/17. Referring Provider Line: [phone] SITE ID: [id number]
[2017-10-09 18:45] VITALS: BP 115/71
--- NOTE | 2017-10-09 23:49 | ED Physician Documentation ---
ED Addendum - Addendum Addendum: 10/09/17 23:49 unscheduled return visit - chart accessed for follow up and educational purposes
== END 2017-10-09 19:50 | disposition short-term general hospital (02) ==
LOC: ED 14:28
DX: J90 Pleural effusion, not elsewhere classified (principal); J95.811 Postprocedural pneumothorax; I10 Essential (primary) hypertension
CPT/HCPCS: 32554; 36415; 71045; 71046; 80053; 81599; 83690; 84484; 85025; 85610; 87070; 87205; 89051; 93005; 99284

== ENCOUNTER 2017-10-09 19:50 | Outpatient (CLI) | payer MEDICARE, OTHER | END 2017-10-09 23:59 | disposition short-term general hospital (02) | LOC: EMS 19:50 | PROVIDERS: ATTEND Surgery | DX: J90 Pleural effusion, not elsewhere classified (principal) | CPT/HCPCS: A0425; A0426 ==